=== PATIENT | female | born 1990 | race Caucasian/White ===

== ENCOUNTER 2018-11-15 20:17 | Outpatient (CLI) | payer OTHER ==
[2018-11-15 22:05] LABS: ADD MAN DIFF? NO
[2018-11-15 22:25] LABS: BASOPHILS % 0.2 % (0.0-2.0); EOSINOPHILS # 0.2 10^3/ul (0.0-0.5); EOSINOPHILS % 1.3 % (0.0-7.0); HEMATOCRIT 32.1 % (37.0-47.0); HEMOGLOBIN 10.5 g/dl (12.0-16.0); LYMPHOCYTES # 2.6 10^3/ul (0.8-2.9); LYMPHOCYTES % 15.7 % (15.0-51.0); MEAN CORPUSCULAR HEMOGLOBIN 28.7 pg (29.0-33.0); MEAN CORPUSCULAR HGB CONC 32.7 g/dl (32.0-37.0); MEAN CORPUSCULAR VOLUME 87.7 fl (82.0-101.0); MEAN PLATELET VOLUME 12.1 fl (7.4-10.4); MONOCYTES % 5.8 % (0.0-11.0); NEUTROPHIL # 12.5 10^3/ul (1.6-7.5); NEUTROPHILS % 76.3 % (39.0-77.0); PLATELET COUNT 250 10^3/UL (140-415); RED BLOOD COUNT 3.66 10^6/ul (4.20-5.40); RED CELL DISTRIBUTION WIDTH 13.3 % (11.5-14.5)
[2018-11-15 22:25] LABS: WHITE BLOOD COUNT 16.3 10^3/ul (4.8-10.8)
[2018-11-15 22:29] LABS: POSITIVE DIFF @See below
== END 2018-11-15 23:50 | disposition home or self-care (01) ==
LOC: OBT 20:17 → L-D 20:18
DX: O9A.212 Injury, poisoning and certain other consequences of external causes complicating pregnancy, second trimester (principal); Z3A.26 26 weeks gestation of pregnancy; S70.11XA Contusion of right thigh, initial encounter; V43.62XA Car passenger injured in collision with other type car in traffic accident, initial encounter; Y92.410 Unspecified street and highway as the place of occurrence of the external cause
CPT/HCPCS: 76815; 85025; 85460; 86850; 86900; 86901

== ENCOUNTER 2019-02-18 19:55 | Inpatient (IN) | payer OTHER ==
[2019-02-18] MEDS: LACTATED RINGER'S 1,000 ML IV (21:50)
[2019-02-18 22:00] LABS: ADD MAN DIFF? NO
[2019-02-18] MEDS ORDERED: LIDOCAINE 1% (MPF) 30 ML INJ INJ (22:00)
[2019-02-18] MEDS ORDERED: BUTORPHANOL 1 MG INJ IV (22:00)
[2019-02-18] MEDS ORDERED: MISOPROSTOL 200 MCG TAB PR (22:00)
[2019-02-18] MEDS ORDERED: OXYTOCIN 30 UNITS/LR 500 ML IV ×3 (22:00)
[2019-02-18] MEDS ORDERED: CARBOPROST 250 MCG INJ IM (22:00)
[2019-02-18] MEDS ORDERED: METHYLERGONOVINE 0.2 MG INJ IM (22:00)
[2019-02-18 22:03] LABS: BASOPHILS % 0.3 % (0.0-2.0); EOSINOPHILS # 0.2 10^3/ul (0.0-0.5); HEMATOCRIT 36.3 % (37.0-47.0); HEMOGLOBIN 11.7 g/dl (12.0-16.0); LYMPHOCYTES # 2.5 10^3/ul (0.8-2.9); LYMPHOCYTES % 17.5 % (15.0-51.0); MEAN CORPUSCULAR HEMOGLOBIN 27.9 pg (29.0-33.0); MEAN CORPUSCULAR HGB CONC 32.2 g/dl (32.0-37.0); MEAN CORPUSCULAR VOLUME 86.4 fl (82.0-101.0); MEAN PLATELET VOLUME 12.3 fl (7.4-10.4); MONOCYTE # 0.8 10^3/ul (0.3-0.9); MONOCYTES % 5.8 % (0.0-11.0); NEUTROPHIL # 10.7 10^3/ul (1.6-7.5); NEUTROPHILS % 74.6 % (39.0-77.0); PLATELET COUNT 254 10^3/UL (140-415); RED CELL DISTRIBUTION WIDTH 13.8 % (11.5-14.5)
[2019-02-18 22:03] LABS: WHITE BLOOD COUNT 14.4 10^3/ul (4.8-10.8)
[2019-02-18 22:07] LABS: INR 0.92; PROTIME 12.5 Sec (11.9-14.9)
[2019-02-18 22:08] LABS: PARTIAL THROMBOPLASTIN TIME 29.2 Sec (23.0-35.0)
[2019-02-18 22:41] LABS: HEPATITIS B SURFACE ANTIGEN NEGATIVE (NEGATIVE)
[2019-02-19] MEDS: MISOPROSTOL 50 MCG CAPSULE PO ×2 (00:17→04:21)
[2019-02-19] MEDS: LACTATED RINGER'S 1,000 ML IV ×4 (04:21→23:47)
[2019-02-19] MEDS: OXYTOCIN 30 UNITS/LR 500 ML IV (12:00)
[2019-02-19] MEDS: BUTORPHANOL 2 MG INJ IV (17:24)
[2019-02-19 19:23] LABS: RAPID PLASMA REAGIN NONREACTIVE (NR)
[2019-02-19] MEDS ORDERED: HYDROmorphONE 0.5 MG/0.5 ML SYG IV ×2 (22:30)
[2019-02-19] MEDS ORDERED: ZOLPIDEM 5 MG TAB PO (22:30)
[2019-02-19] MEDS ORDERED: NALOXONE (0.4 MG/ML) INJ IV (22:30)
[2019-02-19] MEDS ORDERED: KETOROLAC 30 MG INJ IV (22:30)
[2019-02-19] MEDS ORDERED: ONDANSETRON 4 MG INJ IV (22:30)
[2019-02-20] MEDS ORDERED: OXYTOCIN 30 UNITS/LR 500 ML BAG IV (07:00)
[2019-02-20] MEDS: LACTATED RINGER'S 1,000 ML IV ×4 (07:00→23:35)
[2019-02-20] MEDS ORDERED: LIDOCAINE 1.5%/EPI MPF (SDV) 30 ML VIAL (07:00)
[2019-02-20] MEDS: FENTAnyl 2MCG/ML-ROPIV 0.2% 100 ML BAG EPI (09:01)
[2019-02-20] MEDS ORDERED: FENTAnyl 50 MCG/ML VIAL (15:03)
[2019-02-20] MEDS: CEFAZOLIN 2 GM/50 ML (PMX) 50 ML IVPB (15:04)
[2019-02-20] MEDS: AZITHROMYCIN 500MG/NS (PMX) 250 ML IVPB (15:04)
[2019-02-20] MEDS ORDERED: NA BICARB 50 MEQ/50 ML VIAL (15:12)
[2019-02-20] MEDS ORDERED: DEXAMETHASONE 4 MG/ML 1 ML INJ (15:12)
[2019-02-20] MEDS ORDERED: morphine SULFATE/PF (10 MG/10 ML) INJ (15:17)
[2019-02-20] MEDS ORDERED: MISOPROSTOL 200 MCG TAB PR (15:30)
[2019-02-20] MEDS ORDERED: NA PHOSPHATE/BIPHOS 133 ML ENEMA PR (15:30)
[2019-02-20] MEDS ORDERED: OXYCODONE/ACETAMINOPHEN (5/325) TAB PO (15:30)
[2019-02-20 15:58] LABS: AADO2 Cord Arterial 73.5 mmHg; Arterial Cord Blood pCO2 53.6 mmHG (25-50); CBA Base Excess -5.9 mmol/L; CBA COHb 0.3 %; CBA Oxygen Sat 15.3 mmHG; CBA Total Hemglobin 16.6 g/dl; MODE ROOM AIR; MetHgb Cord Arterial 1.9 %; Sample Type CBA; Site CORD
[2019-02-20] MEDS ORDERED: DIPHENHYDRAMINE 50 MG INJ IV (16:00)
[2019-02-20] MEDS ORDERED: HYDROmorphONE 0.5 MG/0.5 ML SYG IV ×2 (16:00)
[2019-02-20] MEDS ORDERED: NALOXONE (0.4 MG/ML) INJ IV (16:00)
[2019-02-20] MEDS ORDERED: ZOLPIDEM 5 MG TAB PO (16:00)
[2019-02-20] MEDS ORDERED: ONDANSETRON 4 MG INJ IV (16:00)
[2019-02-20 16:02] LABS: CBV Base Excess -8.4 mmol/L; CBV COHb 1.1 %; CBV Oxygen Sat 60.2 mmHG; CBV Total Hemglobin 16.9 g/dl; Cord Blood Venous AADO2 72.9 mmHg; Cord Blood Venous pO2 28.9 mmHG (15.0-45.0); Fraction OxyHgb Cord Venous 58.7 %; MODE ROOM AIR; MetHgb Cord Venous 1.4 %; Sample Type CBV; Site CORD
[2019-02-20] MEDS: OXYTOCIN 30 UNITS/LR 500 ML IV (16:40)
[2019-02-20] MEDS: PIPER-TAZO 3.375 GM IV (PMX) 100 ML IVPB ×2 (17:40→23:36)
[2019-02-20] MEDS: SENNA/DOCUSATE NA (8.6MG/50MG) TAB PO (21:42)
[2019-02-20] MEDS: KETOROLAC 30 MG INJ IV (23:36)
[2019-02-21] MEDS: KETOROLAC 30 MG INJ IV ×2 (05:17→15:05)
[2019-02-21] MEDS: PIPER-TAZO 3.375 GM IV (PMX) 100 ML IVPB ×4 (05:53→23:31)
[2019-02-21 08:44] LABS: ADD MAN DIFF? NO
[2019-02-21 08:46] LABS: WHITE BLOOD COUNT 23.4 10^3/ul (4.8-10.8)
[2019-02-21 08:46] LABS: ABNORMAL IP MESSAGE 1; BASOPHIL # 0.1 10^3/ul (0.0-0.1); BASOPHILS % 0.4 % (0.0-2.0); EOSINOPHILS % 0.1 % (0.0-7.0); HEMATOCRIT 28.1 % (37.0-47.0); HEMOGLOBIN 9.2 g/dl (12.0-16.0); LYMPHOCYTES # 2.5 10^3/ul (0.8-2.9); LYMPHOCYTES % 10.7 % (15.0-51.0); MEAN CORPUSCULAR HEMOGLOBIN 28.5 pg (29.0-33.0); MEAN CORPUSCULAR HGB CONC 32.7 g/dl (32.0-37.0); MEAN PLATELET VOLUME 12.3 fl (7.4-10.4); MONOCYTE # 1.6 10^3/ul (0.3-0.9); MONOCYTES % 6.8 % (0.0-11.0); NEUTROPHIL # 18.9 10^3/ul (1.6-7.5); PLATELET COUNT 216 10^3/UL (140-415); RED BLOOD COUNT 3.23 10^6/ul (4.20-5.40); RED CELL DISTRIBUTION WIDTH 13.9 % (11.5-14.5)
[2019-02-21 08:47] LABS: POSITIVE DIFF @See below
[2019-02-21] MEDS: LACTATED RINGER'S 1,000 ML IV ×3 (10:44→23:00)
[2019-02-21] MEDS: SENNA/DOCUSATE NA (8.6MG/50MG) TAB PO ×2 (10:51→20:57)
[2019-02-21] MEDS: DIPHENHYDRAMINE 50 MG INJ IV (10:51)
[2019-02-21] MEDS: IBUPROFEN 600 MG TAB PO ×2 (17:52→23:31)
[2019-02-22] MEDS: IBUPROFEN 600 MG TAB PO ×3 (05:31→18:05)
[2019-02-22] MEDS: PIPER-TAZO 3.375 GM IV (PMX) 100 ML IVPB ×3 (05:31→18:06)
[2019-02-22] MEDS: LACTATED RINGER'S 1,000 ML IV ×2 (07:00→15:00)
[2019-02-22 08:42] LABS: ADD MAN DIFF? NO
[2019-02-22 08:47] LABS: WHITE BLOOD COUNT 14.1 10^3/ul (4.8-10.8)
[2019-02-22 08:47] LABS: BASOPHIL # 0.1 10^3/ul (0.0-0.1); BASOPHILS % 0.4 % (0.0-2.0); EOSINOPHILS # 0.2 10^3/ul (0.0-0.5); EOSINOPHILS % 1.6 % (0.0-7.0); HEMATOCRIT 27.9 % (37.0-47.0); HEMOGLOBIN 8.9 g/dl (12.0-16.0); LYMPHOCYTES # 2.5 10^3/ul (0.8-2.9); LYMPHOCYTES % 17.6 % (15.0-51.0); MEAN CORPUSCULAR HEMOGLOBIN 28.3 pg (29.0-33.0); MEAN CORPUSCULAR HGB CONC 31.9 g/dl (32.0-37.0); MEAN CORPUSCULAR VOLUME 88.9 fl (82.0-101.0); MEAN PLATELET VOLUME 12.1 fl (7.4-10.4); MONOCYTE # 0.7 10^3/ul (0.3-0.9); NEUTROPHIL # 10.6 10^3/ul (1.6-7.5); NEUTROPHILS % 74.6 % (39.0-77.0); PLATELET COUNT 213 10^3/UL (140-415); RED BLOOD COUNT 3.14 10^6/ul (4.20-5.40); RED CELL DISTRIBUTION WIDTH 14.2 % (11.5-14.5)
[2019-02-22] MEDS: SENNA/DOCUSATE NA (8.6MG/50MG) TAB PO ×2 (09:04→20:41)
[2019-02-22] MEDS: DIPHTH/TET/ACEL PERTUSS (ADULT) 0.5 ML VIAL IM* (11:51)
[2019-02-22] MEDS: MEASLES,MUMPS,RUBELLA VACCINE INJ SC* (11:52)
[2019-02-22] MEDS: OXYCODONE/ACETAMINOPHEN (5/325) TAB PO (20:41)
[2019-02-23] MEDS: PIPER-TAZO 3.375 GM IV (PMX) 100 ML IVPB ×2 (01:00→06:06)
[2019-02-23] MEDS: IBUPROFEN 600 MG TAB PO ×2 (01:01→06:06)
[2019-02-23] MEDS: OXYCODONE/ACETAMINOPHEN (5/325) TAB PO (07:03)
[2019-02-23] MEDS: LANOLIN HPA 1 PKT TOP (12:33)
== END 2019-02-23 14:11 | disposition home or self-care (01) | DRG 788 ==
LOC: L-D 19:55 → PP1 02-20 18:46
PROVIDERS: Specialist
PROC: 10D00Z1 Extraction of Products of Conception, Low, Open Approach (ICD-10-PCS; principal; 2019-02-19)
DX: O41.1230 Chorioamnionitis, third trimester, not applicable or unspecified (principal); O62.0 Primary inadequate contractions; O76 Abnormality in fetal heart rate and rhythm complicating labor and delivery; Z3A.39 39 weeks gestation of pregnancy; Z37.0 Single live birth
CPT/HCPCS: 36415; 36600; 76815; 82803; 85025; 85610; 85730; 86592; 86850; 86900; 86901; 87340; 88307